=== PATIENT | male | born 1965 | race Caucasian/White ===

== ENCOUNTER 2021-02-19 13:13 | Emergency (ER) | payer OTHER ==
[~2021-02-19] VITALS: Ht 180.3 cm; Wt 120.2 kg
--- NOTE | 2021-02-19 13:16 | NUR ---
TO ER BED 7, BIBRA C/O SYNCOPE WHILE EATING LUNCH AFTER LONG HOURS OF FASTING, DENIES TRAUMA AND PAIN, AAOX3, BREATHING EVEN AND NON LABORED, CONNECTED TO MONITOR
[2021-02-19] MEDS: IV NS 0.9% 1,000 ML BAG IV ONE (14:30)
[2021-02-19 14:47] LABS: BASOPHILS # (AUTO) 0.1 K/uL (0.0-0.2); BASOPHILS % (AUTO) 0.6 % (0.0-2.0); EOSINOPHILS % (AUTO) 2.1 % (0.0-6.0); HEMATOCRIT 47 % (39-51); HEMOGLOBIN 15.3 g/dL (13.5-17.5); LYMPHOCYTES # (AUTO) 1.5 K/uL (0.8-4.8); LYMPHOCYTES % (AUTO) 13.7 % (20.0-44.0); MEAN CORPUSCULAR HGB CONC 33 g/dl (31.0-36.0); MEAN CORPUSCULAR VOLUME 91 fL (80-96); MONOCYTES # (AUTO) 0.6 K/uL (0.1-1.30); MONOCYTES % (AUTO) 5.3 % (2.0-12.0); NEUTROPHILS # (AUTO) 8.6 K/uL (1.8-8.9); NEUTROPHILS % (AUTO) 78.3 % (43.0-81.0); PLATELET COUNT (AUTO) 340 K/uL (150-450); RED BLOOD CELL COUNT(AUTO) 5.09 MIL/uL (4.5-6.0)
[2021-02-19 14:56] LABS: CALCIUM, SERUM 9.2 mg/dL (8.5-10.1); CARBON DIOXIDE 28 mmol/L (21-32); CHLORIDE 101 mmol/L (98-107); CREATININE 1.5 mg/dL (0.6-1.3); GLUCOSE 191 mg/dL (74-106); POTASSIUM 3.8 mmol/L (3.5-5.1); SODIUM SERUM 139 mmol/L (136-145); UREA NITROGEN, BLOOD 22 mg/dL (7-18)
[2021-02-19 15:02] LABS: ALANINE AMINOTRANSFERASE 29 U/L (12-78); ALBUMIN 4.1 g/dL (3.4-5.0); ALKALINE PHOSPHATASE 60 U/L (46-116); ASPARTATE AMINOTRANSFERASE 15 U/L (15-37); BILIRUBIN,DIRECT 0.2 mg/dL (0.0-0.2); BILIRUBIN,TOTAL 0.6 mg/dL (0.2-1.0); TOTAL PROTEIN, SERUM 8.3 g/dL (6.4-8.2)
[2021-02-19 18:12] VITALS: BP 127/81
== END 2021-02-19 18:12 | disposition home or self-care (01) ==
LOC: ER 13:16
DX: R55 Syncope and collapse (principal); I10 Essential (primary) hypertension
CPT/HCPCS: 36415; 71045; 80048; 80076; 84484; 85025; 85730; 93005; 96360; 99285; J7030